=== PATIENT | female | born 1985 | race Caucasian/White ===

== ENCOUNTER → 2017-08-13 | Outpatient (CLI) | payer OTHER ==
[2017-08-13 11:46] LABS: PLATELET COUNT, AUTOMATED 172 K/uL (150-450)
[2017-08-13 12:09] LABS: LDL CHOLESTEROL 97 mg/dl
== END ==
LOC: LAB 11:24
PROVIDERS: ATTEND Nurse Practitioner Psychiatric/Mental Health
DX: Z00.00 Encounter for general adult medical examination without abnormal findings (principal); E03.9 Hypothyroidism, unspecified
CPT/HCPCS: 36415; 82040; 82247; 82306; 82310; 82374; 82435; 82465; 82565; 82947; 83540; 83718; 84075; 84132; 84155; 84295; 84439; 84443; 84450; 84460; 84478; 84480; 84520; 85025

== ENCOUNTER → 2018-01-05 | Outpatient (CLI) | payer OTHER ==
--- NOTE | 2018-01-05 15:06 | RADIOLOGY IMAGING REPORT ---
FACILITY: [facility] PATIENT NAME: Jacy Camargo : 1985 MR: [id number] V: [id number] EXAM DATE: ORDERING PHYSICIAN: SHERYL MCCRAY TECHNOLOGIST: Location: [facility] - [place] Patient: Jacy Camargo : 1985 Visit/Account:[id number] Date of Sevice: 01/05/2018 THYROID HISTORY: Hypothyroidism COMPARISON: None. FINDINGS: SIZE: Right lobe: 5.6 x 1.7 x 1.7 cm Left lobe: 3.8 x 1.4 x 1.5 cm Isthmus: 6 mm PARENCHYMA: Heterogeneous on the right NODULES: Right lobe: * There is a 1.1 x 1.1 x 1.2 cm well-circumscribed with internal cystic changes. Left lobe: * A 7 mm well-circumscribed hypoechoic nodule superior pole the left lobe Isthmus: * None discrete. VASCULARITY: Within normal limits. ADDITIONAL FINDINGS: None. IMPRESSION: Mildly heterogeneous right lobe the thyroid 1.2 cm well-circumscribed partially cystic nodule lower pole the right lobe for which a six month fol low-up ultrasound recommended REFERENCE: 2015 [employer] [employer] Management Guidelines for Adult Patients with Thyroid Nodules and D ifferentiated Thyroid Cancer: The [place] [employer] Guidelines Task Force on Thyroid Nodul es and Differentiated Thyroid Cancer. SONOGRAPHIC PATTERNS: * Benign: Purely cystic nodules (no solid component); estimated risk of malignancy <1 percent; no bi opsy recommended. * Very Low Suspicion: Spongiform or partially cystic nodules without any of the sonographic features described in low, intermediate, or high suspicion patterns; estimated risk of malignancy <3 percent; consider FNA at > 2 cm (Observation without FNA is also a reasonable option). * Low Suspicion: Isoechoic or hyperechoic solid nodule, or partially cystic nodule with eccentric so lid areas, without microcalcification, irregular margin or ETE (extra-thyroidal extension), or taller than wide shape; estimated risk of malignancy 5-10 percent; recommend FNA at >1.5 cm. * Intermediate Suspicion: Hypoechoic solid nodule with smooth margins without microcalcifications, E TE (extra-thyroidal extension), or taller than wide shape; estimated risk of malignancy 10-20 percent ; recommend FNA at > 1 cm. * High Suspicion: Solid hypoechoic nodule or solid hypoechoic component of a partially cystic nodule with one or more of the following features: irregular margins (infiltrative, microlobulated), microc alcifications, taller than wide shape, rim calcifications with small extrusive soft tissue component, evidence of ETE (extra-thyroidal extension); estimated risk of malignancy >70-90 percent; recommend FNA at > 1 cm. NOTES: * Although a sonographically suspicious subcentimeter thyroid nodule without evidence of extrathyroi rodney extension or sonographically suspicious lymph nodes may be observed with close sonographic follow -up rather than pursuing immediate FNA, patient age and preference may modify decision-making. A > 50% interval increase in nodule volume and/or development of new suspicious sonographic features are felt to be a valid reasons for potential re-aspiration of a nodule previously shown to have benig n FNA cytology. Report Dictated By: Morena Ricks MD at 01/05/2018 2:58 PM Report E-Signed By: Morena Ricks MD at 01/05/2018 3:01 PM WSN:[email or web address]
== END ==
LOC: US 01:02
PROVIDERS: ATTEND Physician Assistant
DX: E03.9 Hypothyroidism, unspecified (principal); E04.1 Nontoxic single thyroid nodule
CPT/HCPCS: 76536

== ENCOUNTER → 2018-08-23 | Outpatient (CLI) | payer OTHER ==
[2018-08-23 10:58] LABS: PLATELET COUNT, AUTOMATED 165 K/uL (150-450)
[2018-08-23 11:21] LABS: LDL CHOLESTEROL 79 mg/dl
== END ==
LOC: LAB 10:38
PROVIDERS: ATTEND Nurse Practitioner Psychiatric/Mental Health
DX: Z00.00 Encounter for general adult medical examination without abnormal findings (principal)
CPT/HCPCS: 36415; 82040; 82247; 82306; 82310; 82374; 82435; 82465; 82565; 82947; 83718; 84075; 84132; 84155; 84295; 84443; 84450; 84460; 84478; 84520; 85025